=== PATIENT | female | born 1975 | race Caucasian/White ===

== ENCOUNTER 2017-10-12 09:10 | Day surgery (SDC) | payer BC ==
[~2017-10-12] VITALS: Ht 162.6 cm; Wt 64.9 kg
[2017-10-12] MEDS ORDERED: NALOXONE HCL 0.4 MG/ML AMP (NARCAN) IVP ONE (15:00)
[2017-10-12] MEDS ORDERED: MEPERIDINE HCL/PF 25 MG/ML DISP.SYRIN IVP PRN (15:00)
[2017-10-12] MEDS ORDERED: MORPHINE 4 MG/ML INJ. SYRINGE IVP PRN (15:00)
[2017-10-12] MEDS ORDERED: fentaNYL CITRATE/PF 100 MCG/2 ML AMP IVP PRN (15:00)
[2017-10-12] MEDS ORDERED: ONDANSETRON HCL 4 MG/2 ML VIAL IVP ONE ×2 (15:00→15:37)
[2017-10-12] MEDS ORDERED: KETOROLAC TROMETHAMINE 30 MG VIAL IVP ONE ×2 (15:00→15:37)
[2017-10-12] MEDS ORDERED: MIDAZOLAM HCL 5 MG/5 ML VIAL IVP PRN (15:00)
[2017-10-12] MEDS ORDERED: IBUPROFEN 800 MG TABLET PO PRN (15:30)
[2017-10-12] MEDS ORDERED: OXYCODONE/ACETAMINOPHEN 5-325 TABLET PO PRN ×2 (15:30)
[2017-10-12] MEDS ORDERED: ONDANSETRON HCL 4 MG/2 ML VIAL IVP PRN (15:30)
[2017-10-12] MEDS ORDERED: CEFAZOLIN 2 GM IVPB PREMIX 50 ML IV ONE (15:37)
[2017-10-12] MEDS ORDERED: SUCCINYLCHOLINE CHLORIDE 20 MG/ML(QUELICIN) IVP ONE (15:37)
[2017-10-12] MEDS ORDERED: NS IRRIG SOLN 1000 ML IR ONE (15:37)
[2017-10-12] MEDS ORDERED: ROCURONIUM BROMIDE 10 MG/ML (ZEMURON) IV ONE (15:37)
[2017-10-12] MEDS ORDERED: PROPOFOL 200MG/ 20ML VIAL (DIPRIVAN) IV ONE (15:37)
[2017-10-12] MEDS ORDERED: DEXAMETHASONE SOD PHOSPHATE 4 MG/ML VIAL IVP ONE (15:37)
[2017-10-12] MEDS ORDERED: MIDAZOLAM HCL 5 MG/ML VIAL (VERSED) IV ONE (15:37)
[2017-10-12] MEDS ORDERED: fentaNYL CITRATE 250 MCG/5 ML AMP IV ONE (15:37)
[2017-10-12] MEDS ORDERED: BUPIVACAINE /PF 0.25% 30 ML VIAL INJ ONE (15:37)
[2017-10-12] MEDS ORDERED: LR 1,000 ML IV.SOLN IV ONE (15:37)
[2017-10-12] MEDS ORDERED: MEPERIDINE HCL/PF 25 MG/ML DISP.SYRIN IVP ONE (15:37)
[2017-10-12] MEDS ORDERED: SEVOFLURANE 15 MIN GAS INH ONE (15:37)
[2017-10-12] MEDS ORDERED: MORPHINE SULFATE 10 MG/ML VIAL ONE (15:48)
[2017-10-12] MEDS ORDERED: ONDANSETRON HCL 4 MG/2 ML VIAL ONE (17:01)
[2017-10-12 17:18] VITALS: BP_SYST 111
== END 2017-10-12 19:20 | disposition home or self-care (01) ==
LOC: SDS 09:10
PROVIDERS: ATTEND Obstetrics & Gynecology
DX: L82.1 Other seborrheic keratosis (principal); N83.01 Follicular cyst of right ovary; F41.9 Anxiety disorder, unspecified; Z98.890 Other specified postprocedural states
CPT/HCPCS: 56620; 58661; 88305; C1727; C1782; J0330; J0690; J1100; J1885; J2175; J2250; J2270; J2310; J2405; J2704; J3010; J3490; J7120